=== PATIENT | female | born 1970 | race Caucasian/White ===

== ENCOUNTER 2023-10-28 15:15 | Outpatient (CLI) | payer OTHER, SELFPAY ==
--- NOTE | ~2023-10-28 | MR_ITS ---
EXAMINATION: MR knee RT wo con DATE: 10/28/2023 16:08 INDICATION: Chronic right knee pain TECHNIQUE: Magnetic resonance imaging (MRI) of the right knee was performed without intravenous contr ast. Sequences included coronal PD-weighted FSE, coronal PD-weighted FS FSE, sagittal T2-weighted FS E, sagittal PD-weighted FS FSE and axial PD weighted fat saturated FSE. COMPARISON: None. FINDINGS: Medial compartment: Complex tear at the body and posterior horn of the medial meniscus with small radial component along the inner third of the posterior horn and longitudinal tear plane extending anteriorly into the poste rior body horn appears to contact both the superior and inferior articular surfaces. Articular cartil age is normal. Lateral compartment: Lateral meniscus is normal. Articular cartilage is normal. Patellofemoral compartment: Partial-thickness chondral ulceration at the medial trochlea, deep with small focus of underlying sub articular edema-like signal change at the inferolateral aspect of the medial trochlea. Mild partial-t hickness cartilage loss and some shallow chondral fissuring at the patellar apical ridge and medial f acet. Ligaments and tendons: Anterior and posterior cruciate ligaments are normal. The medial collateral ligament and fibular desire ateral ligament complex are normal. The extensor mechanism is normal. The visualized medial and later al hamstring tendons as well as the iliotibial band are normal. Fluid: Physiologic amount of fluid in the joint space. No loose osteochondral bodies identified. Osseous/other: Impression geographic red marrow reexpansion the distal femoral metadiaphyseal region. No fracture or pathologic marrow replacing process. IMPRESSION: 1. Complex medial meniscal tear. 2. 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 Reviewed, dictated and finalized at location A. [employer] Impression geographic red marrow reexpansion the distal femoral metadiaphyseal region. No fracture or pathologic marrow replacing process. IMPRESSION: 1. Complex medial meniscal tear. 2. Mild patellofemoral osteoarthritis with high-grade chondral malacia the medi al trochlea.
== END 2023-10-28 15:16 | disposition home or self-care (01) ==
PROVIDERS: PCP Family Medicine; Visit Provider Orthopaedic Surgery
DX: S83.231A Complex tear of medial meniscus, current injury, right knee, initial encounter (principal); X58.XXXA Exposure to other specified factors, initial encounter; M17.11 Unilateral primary osteoarthritis, right knee
CPT/HCPCS: 73721